=== PATIENT | male | born 1990 | race Caucasian/White ===

== ENCOUNTER 2017-08-09 23:44 | Emergency (ER) | payer OTHER, SELFPAY ==
[2017-08-10] MEDS ORDERED: Metoclopramide HCl 10 MG/2 ML VIAL ONE (01:01)
[2017-08-10] MEDS ORDERED: diphenhydrAMINE 50 MG/ML VIAL ONE (01:01)
[2017-08-10] MEDS ORDERED: Ketorolac Tromethamine 30 MG/ML VIAL ONE (01:01)
== END 2017-08-10 01:05 | disposition left against medical advice (07) ==
LOC: ERS 23:44
DX: R51 Headache (principal); M54.5 Low back pain; G43.909 Migraine, unspecified, not intractable, without status migrainosus
CPT/HCPCS: 99283; J1200; J1885; J2765